=== PATIENT | female | born 2005 | race African-American/Black ===

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

== ENCOUNTER 2023-03-16 02:43 | Emergency (ER) | payer MEDICAID, SELFPAY ==
[2023-03-16 03:07] VITALS: BP 108/54; BP 148/80; PULSE 110; PULSE 67; RESP 18; TEMP 36.8; O2SAT 98; O2SAT 99; BMI 22.7
[2023-03-16 03:28] LABS: MANUAL DIFF FLAG NO
[2023-03-16 03:32] LABS: Basophils Percent Auto 0.4 % (0-2); Eosinophils Absolute Auto 0.1 X10*3/uL (0.0-0.4); Eosinophils Percent Auto 1.1 % (0-4); Hematocrit 36.9 % (37.0-47.0); Hemoglobin 12.5 g/dl (12.0-16.0); Imm Gran Abs Auto 0.03 X10*3/uL (0.00-0.03); Imm Gran Pct Auto 0.3 % (0.0-0.4); Lymphocytes Absolute Auto 2.6 X10*3/uL (1.2-4.9); Lymphocytes Percent Auto 27.8 % (20-40); Mean Corpuscular HGB Conc 33.9 g/dl (31.0-35.0); Mean Corpuscular Hemoglobin 28.2 pg (27.0-33.0); Mean Corpuscular Volume 83.1 fL (80.0-98.0); Mean Platelet Volume 9.5 fL (9.4-12.3); Monocytes Absolute Auto 0.5 X10*3/uL (0.1-1.2); Monocytes Percent Auto 5.8 % (2-11); Neutrophils Percent Auto 64.6 % (45-73); Platelet Count 226 X10*3/uL (160-400); Red Blood Count 4.44 X10*6/uL (4.20-5.50); White Blood Count 9.3 X10*3/uL (4.8-10.8)
[2023-03-16 03:58] LABS: Troponin-I High Sensitivity < 2.7 ng/L (<3.5-17.0)
[2023-03-16 04:04] LABS: COVID-19 Test Negative (Negative); IDNOW Serial# 08D9AD1C; IDNOW Serial# BCCEAD1C; Influenza A Negative (Negative); Influenza B2 Negative (Negative)
[2023-03-16 04:06] LABS: Alanine Aminotransferase 11 U/L (0-31); Albumin Level 3.7 g/dL (3.5-5.0); Alkaline Phosphatase 39 U/L (39-117); Anion Gap 11 (12-20); Aspartate Amino Transferase 15 U/L (5-31); Bilirubin Total 0.3 mg/dL (0.0-1.0); Blood Urea Nitrogen 7 mg/dL (9-16); Calcium 9.3 mg/dL (8.4-10.2); Carbon Dioxide 17 mmol/L (22-29); Chloride 110 mmol/L (96-108); Creatinine Clr Calc Pharmacy 110.1; Estimated Glomerular Filt Rate > 60; Glucose Random 99 mg/dL (60-115); Potassium 3.3 mmol/L (3.3-5.1); Sodium 135 mmol/L (135-145); Total Protein 6.9 g/dL (6.5-8.0)
[2023-03-16 04:57] VITALS: BP 103/58; PULSE 53; RESP 14; TEMP 36.6; O2SAT 99
--- NOTE | 2023-03-16 04:58 | PC.NURSE ---
Pt ca&ox4, no signs of distress. Pt placed on bedside monitor pt changed into hospital attire Pts bf at bedside Pt reporting 4/10 chest pain which is worse when breathing. Pt reports this is the first time she has this pain. Pt denies sob/n/v/dizziness. Pt reports she is 4 months . Pt advised urine needed. Plan of care ongoing.
--- NOTE | 2023-03-16 04:59 | ED_ITS ---
HPI - Chest Pain General Chief Complaint: Chest Pain Stated Complaint: Back and Chest Pain Time Seen by Provider: 03/16/23 04:59 Source: patient Mode of arrival: ambulatory Limitations: no limitations History of Present Illness HPI narrative: Patient is 4 months with history of anxiety used to take medication before not taking anymore under increased stress and anxiety unable to sleep complaining of sharp chest pain 1 hour prior to arrival no significant shortness of breath feels anxious no leg swelling or calf pain Related Data Previous Rx's Medication Instructions Recorded acetaminophen 500 mg tablet 500 mg PO Q6H PRN pain #14 tabs 05/16/21 (Tylenol Extra Strength) benzoyl peroxide 5 % topical gel 1 appl topical DAILY #60 grams 10/26/21 hydroxyzine HCl 10 mg tablet 10 mg PO Q6-8H PRN anxiety #14 tabs 10/26/21 sertraline 25 mg tablet See Rx Instructions PO DAILY #30 10/26/21 tabs clindamycin phosphate 1 % topical 1 appl topical BID #60 grams 04/24/22 gel hydroxyzine HCl 25 mg tablet 25 mg PO Q6-8H PRN anxiety #14 tabs 03/16/23 Allergies Allergy/AdvReac Type Severity Reaction Status Date / Time No Known Allergies Allergy Verified 03/16/23 03:12 Review of Systems 2 Review of Systems: Yes all other systems are reviewed and are negative PMFSH Past Medical History Medical History ADHD Surgical History S/P appendectomy Family History Family History Mother No problems noted. Father No problems noted. Social History Social History Household Members: Other Household Members Other:: lives with mother and brother. one dog. Smoked in Last 30 Days: No Use of substances other than those prescribed or required for medical reasons: No Advance Directives: No Advance Directives Information Provided: Yes Patient : Yes Physical Exam 2 Vital Signs: Vital Signs: Last Vital Signs Temp 97.9 F 03/16/23 04:57 Pulse 53 03/16/23 04:57 Resp 14 03/16/23 04:57 BP 103/58 L 03/16/23 04:57 Pulse Ox 99 03/16/23 04:57 O2 Del Method Room Air 03/16/23 04:57 BMI result Body Mass Index 22.7 Appearance: Alert. Oriented X3. Anxious Eyes: PERRLA, No Nystagmus ENT: Pharynx normal. Oral Mucosa moist Neck: Normal inspection. Neck supple. CVS: Normal heart rate and rhythm. Pulses normal. Respiratory: No respiratory distress. Equal air entry bilateral, no wheezing/rales/rhonchi Abdomen: Soft and nontender. Bowel sounds are present, no mass palpable, no CVA tenderness Skin: Skin warm and dry. Normal skin color. Normal skin turgor. Extremities: No lower extremity edema. No calf tenderness Neuro: Oriented X 3. Medications Administered Discontinued Medications Generic Name Dose Route Start Last Admin Trade Name Freq PRN Reason Stop Dose Admin Hydroxyzine HCl 25 mg 03/16/23 05:03 03/16/23 05:18 Hydroxyzine Hcl 25 Mg Tablet PO 03/16/23 05:04 25 mg ONCE ONE Administration Medical Decision Making Medical Decision Making [facility] Narrative: Patient with history of anxiety him with atypical chest pain EKG normal cardiac enzyme , heart score 0 discharge patient home on Atarax Lab Data [facility] Lab Attestation statement: I reviewed the patient's lab results. 03/16/23 03:21 03/16/23 03:21 Labs: Lab Results 03/16/23 Range/Units 03:21 WBC 9.3 (4.8-10.8) X10*3/uL RBC 4.44 (4.20-5.50) X10*6/uL Hgb 12.5 (12.0-16.0) g/dl Hct 36.9 L (37.0-47.0) % MCV 83.1 (80.0-98.0) fL MCH 28.2 (27.0-33.0) pg MCHC 33.9 (31.0-35.0) g/dl RDW 13.0 (11.0-16.0) % Plt Count 226 (160-400) X10*3/uL MPV 9.5 (9.4-12.3) fL Immature Gran % (Auto) 0.3 (0.0-0.4) % Neut % (Auto) 64.6 (45-73) % Lymph % (Auto) 27.8 (20-40) % [place] % (Auto) 5.8 (2-11) % Eos % (Auto) 1.1 (0-4) % Baso % (Auto) 0.4 (0-2) % Lymph # (Auto) 2.6 (1.2-4.9) X10*3/uL [place] # (Auto) 0.5 (0.1-1.2) X10*3/uL Eos # (Auto) 0.1 (0.0-0.4) X10*3/uL Baso # (Auto) 0.0 (0.0-0.2) X10*3/uL Abs Immat Gran (auto) 0.03 (0.00-0.03) X10*3/uL Absolute Neuts (auto) 6.0 (2.0-8.3) x10*3/uL Absolute Nucleated RBC 0.000 (0.0-0.012) X10*3/uL Nucleated RBC % (auto) 0.0 (0.0-0.2) /100WBC Sodium 135 (135-145) mmol/L Potassium 3.3 (3.3-5.1) mmol/L Chloride 110 H (96-108) mmol/L Carbon Dioxide 17 L (22-29) mmol/L Anion Gap 11 L (12-20) BUN 7 L (9-16) mg/dL Creatinine 0.68 (0.5-1.4) mg/dL Estim Creat Clear Calc 110.1 Estimated GFR > 60 Random Glucose 99 (60-115) mg/dL Calcium 9.3 (8.4-10.2) mg/dL Total Bilirubin 0.3 (0.0-1.0) mg/dL AST 15 (5-31) U/L ALT 11 (0-31) U/L Alkaline Phosphatase 39 (39-117) U/L Troponin I High Sens < 2.7 (<3.5-17.0) ng/L Total Protein 6.9 (6.5-8.0) g/dL Albumin 3.7 (3.5-5.0) g/dL Beta HCG, Quant 98795 mIU/mL COVID-19 (NEISHA) Negative (Negative) COVID-19 Clin Com See Note Influenza Type A (SCOTTIE) Negative (Negative) Influenza Type B (SCOTTIE) Negative (Negative) Influenza A & B Note See Note Independent Interpretation I performed an independent interpretation of an: EKG Interpretation: Sinus bradycardia heart rate 51 beats per minute no acute ST-T no acute ischemia Discharge Plan Discharge Clinical Impression: Anxiety, Chest pain Patient Disposition: Home, Self-Care Instructions: Chest Pain (DC), Generalized Anxiety Disorder (ED) Additional Instructions: Take medication for anxiety as needed your chest pain is not coming from the heart likely musculoskeletal Prescriptions: New hydroxyzine HCl 25 mg tablet 25 mg PO Q6-8H PRN (Reason: anxiety) Qty: 14 0RF No Action clindamycin phosphate 1 % gel 1 appl topical BID Qty: 60 1RF Rx Instructions: apply sparingly to clean, affected skin acetaminophen [Tylenol Extra Strength] 500 mg tablet 500 mg PO Q6H PRN (Reason: pain) Qty: 14 0RF sertraline 25 mg tablet See Rx Instructions PO DAILY Qty: 30 1RF Rx Instructions: take 12.5 mg (1/2 tab) PO daily x 2 weeks then increase to 25 mg daily (1 tab); hydroxyzine HCl 10 mg tablet 10 mg PO Q6-8H PRN (Reason: anxiety) Qty: 14 0RF benzoyl peroxide 5 % gel 1 appl topical DAILY Qty: 60 1RF Rx Instructions: apply sparingly to clean, affected skin daily at bedtime
[2023-03-16] MEDS: hydrOXYzine HCL 25 MG TABLET PO (05:18)
--- NOTE | 2023-03-16 05:37 | PC.NURSE ---
Pt medicated per mar. Pts bf remains at bedside Provider made aware pt is 4 months . Plan of care ongoing.
--- NOTE | 2023-03-16 05:57 | ECG_ITS ---
Test Reason : CP Blood Pressure : / mmHG Vent. Rate : 051 BPM Atrial Rate : 051 BPM P-R Int : 210 ms QRS Dur : 076 ms QT Int : 428 ms P-R-T Axes : 045 029 015 degrees QTc Int : 394 ms Sinus bradycardia with sinus arrhythmia with 1st degree A-V block Otherwise normal ECG When compared with ECG of 21-OCT-2020 18:21, Vent. rate has decreased BY 62 BPM NE interval has increased Referred By: Rajiv Alarcon Electronically Signed By:BRIAN PABLO
--- NOTE | 2023-03-16 06:05 | PC.NURSE ---
ekg results given to provider maurice
== END 2023-03-16 06:31 | disposition home or self-care (01) ==
PROVIDERS: Emergency Provider Internal Medicine
DX: F41.9 Anxiety disorder, unspecified (principal); R07.9 Chest pain, unspecified; Z20.822 Contact with and (suspected) exposure to COVID-19; F90.9 Attention-deficit hyperactivity disorder, unspecified type; Z79.899 Other long term (current) drug therapy
CPT/HCPCS: 36415; 80053; 84484; 84702; 85025; 87502; 87635; 93005; 99283; 99285

== ENCOUNTER 2023-05-07 23:04 | Emergency (ER) | payer OTHER, SELFPAY ==
--- NOTE | 2023-05-07 23:10 | ECG_ITS ---
Test Reason : CP Blood Pressure : / mmHG Vent. Rate : 065 BPM Atrial Rate : 065 BPM P-R Int : 188 ms QRS Dur : 076 ms QT Int : 374 ms P-R-T Axes : 042 031 029 degrees QTc Int : 388 ms Normal sinus rhythm with sinus arrhythmia Normal ECG When compared with ECG of 16-MAR-2023 06:00, No significant change was found Referred By: Generic ED Physician Electronically Signed By:ISABELA BRAVO MD
[2023-05-07 23:12] VITALS: BP 107/66; PULSE 72; RESP 18; TEMP 36.7; O2SAT 99; BMI 24.8
--- NOTE | 2023-05-07 23:19 | MHC.EDTECH ---
Patient came in by EMS,changed into hospital attire,satellite project site monitor placed,vitals and EKG done per order.
[2023-05-07 23:28] VITALS: PULSE 74
--- NOTE | 2023-05-07 23:38 | ED.CHESTPAIN ---
HPI - Chest Pain General Chief Complaint: Chest Pain Stated Complaint: SHARP CHEST PAIN X30 MINS, Time Seen by Provider: 05/07/23 23:37 Source: patient Mode of arrival: ambulatory Limitations: no limitations History of Present Illness HPI narrative: Patient is 6 months comes with left-sided sharp pain which is happened for last 3 months sharp in character lasting for hours increases on palpation and movements was seen here for same in the past with negative workup denies any shortness of breath feels stressed no palpitation no leg swelling or pain Related Data Previous Rx's Medication Instructions Recorded acetaminophen 500 mg tablet 500 mg PO Q6H PRN pain #14 tabs 05/16/21 (Tylenol Extra Strength) benzoyl peroxide 5 % topical gel 1 appl topical DAILY #60 grams 10/26/21 hydroxyzine HCl 10 mg tablet 10 mg PO Q6-8H PRN anxiety #14 tabs 10/26/21 sertraline 25 mg tablet See Rx Instructions PO DAILY #30 10/26/21 tabs clindamycin phosphate 1 % topical 1 appl topical BID #60 grams 04/24/22 gel hydroxyzine HCl 25 mg tablet 25 mg PO Q6-8H PRN anxiety #14 tabs 03/16/23 Allergies Allergy/AdvReac Type Severity Reaction Status Date / Time No Known Allergies Allergy Verified 03/16/23 03:12 Review of Systems Review of Systems: Yes all other systems are reviewed and are negative PMF Past Medical History Medical History ADHD Surgical History S/P appendectomy Family History Family History Mother No problems noted. Father No problems noted. Social History Social History Household Members: Other Household Members Other:: lives with mother and brother. one dog. Smoked in Last 30 Days: No Use of substances other than those prescribed or required for medical reasons: No Advance Directives: No Advance Directives Information Provided: No Patient : Yes Physical Exam Vital Signs: Vital Signs: Last Vital Signs Temp 98.1 F 05/07/23 23:12 Pulse 72 05/07/23 23:12 Resp 18 05/07/23 23:12 BP 107/66 05/07/23 23:12 Pulse Ox 99 05/07/23 23:12 O2 Del Method Room Air 05/07/23 23:12 BMI result Body Mass Index 24.8 Appearance: Alert. Oriented X3. No acute distress. Neck: Normal inspection. Neck supple. CVS: Normal heart rate and rhythm. Pulses normal. Respiratory: No respiratory distress. Equal air entry bilateral, no wheezing/rales/rhonchi chest wall tenderness left anterior 2nd intercostal space Abdomen: Soft and nontender. Skin: Skin warm and dry. Normal skin color. Normal skin turgor. Extremities: No lower extremity edema. No calf tenderness Neuro: Oriented X 3. Medications Administered Discontinued Medications Generic Name Dose Route Start Last Admin Trade Name Freq PRN Reason Stop Dose Admin Acetaminophen 650 mg 05/07/23 23:44 05/07/23 23:49 Acetaminophen 325 Mg Tablet PO 05/07/23 23:45 650 mg ONCE ONE Administration Medical Decision Making Medical Decision Making [facility] Narrative: Patient has atypical chest pain reproducible on palpation multiple ED visits for same discharge patient zones acute ischemic changes low risk for PE with no symptoms no shortness of breath no leg swelling or pain Differential Diagnosis Differential Diagnoses: The differential diagnosis associated with the presentation includes ACS/pericarditis/costochondritis Independent Interpretation I performed an independent interpretation of an: EKG Interpretation: Normal sinus rhythm heart rate 65 beats per minute normal interval normal axis no acute ST-T no acute ischemia Discharge Plan Discharge Clinical Impression: Chest wall pain Patient Disposition: Home, Self-Care Instructions: Chest Wall Pain (ED) Additional Instructions: Take Tylenol for pain Your chest pain is musculoskeletal not from the heart Prescriptions: No Action clindamycin phosphate 1 % gel 1 appl topical BID Qty: 60 1RF Rx Instructions: apply sparingly to clean, affected skin acetaminophen [Tylenol Extra Strength] 500 mg tablet 500 mg PO Q6H PRN (Reason: pain) Qty: 14 0RF hydroxyzine HCl 25 mg tablet 25 mg PO Q6-8H PRN (Reason: anxiety) Qty: 14 0RF sertraline 25 mg tablet See Rx Instructions PO DAILY Qty: 30 1RF Rx Instructions: take 12.5 mg (1/2 tab) PO daily x 2 weeks then increase to 25 mg daily (1 tab); hydroxyzine HCl 10 mg tablet 10 mg PO Q6-8H PRN (Reason: anxiety) Qty: 14 0RF benzoyl peroxide 5 % gel 1 appl topical DAILY Qty: 60 1RF Rx Instructions: apply sparingly to clean, affected skin daily at bedtime Interventions: ED Discharge Assessment Last Done: 05/07/23 23:55 Discharge Date/Time: 05/07/23 23:56
[2023-05-07] MEDS: Acetaminophen 325 MG TABLET 650 MG PO (23:49)
== END 2023-05-07 23:56 | disposition home or self-care (01) ==
PROVIDERS: Emergency Provider Internal Medicine
DX: R07.89 Other chest pain (principal)
CPT/HCPCS: 93005; 99284; 99285

== ENCOUNTER 2024-01-04 19:45 | Emergency (ER) | payer OTHER, SELFPAY ==
--- NOTE | ~2024-01-04 | CT_ITS ---
EXAMINATION: CT CERVICAL SPINE WITHOUT CONTRAST; UNENHANCED CT OF THE HEAD. CLINICAL INFORMATION: Injury COMPARISON: None TECHNIQUE: Routine unenhanced CT of the head with multiple coronal and sagittal reformatted images; routine unenhanced CT of the cervical spine with multiple coronal and sagittal reformatted images. This CT examination was performed using dose optimization techniques as appropriate, variously including the following: *Automated exposure control *Adjustment of mA and/or kV according to patient size (this includes techniques or standardized protocols for targeted exams where dose is matched to indication/reason for exam; i.e. extremities or head) *Use of iterative reconstruction technique DLP: 1051 mGy-cm FINDINGS: No intracranial hemorrhage, tumors or acute infarcts identified. The visualized orbits and globes are normal in appearance. The ventricles and sulci are normal in size and configuration. No significant opacification of the visualized paranasal sinuses, mastoid air cells and middle ear cavities. Focal subcutaneous emphysema and mild soft tissue inflammatory changes are present in the left temporal region. CT cervical spine: No fractures or acute appearing subluxations are identified. No facet arthropathic changes noted. No prevertebral fluid collections or soft tissue inflammatory changes. The visualized lung apices are clear. CT/CT cervical spine wo IV con IMPRESSION: CT HEAD: 1. No intracranial abnormalities. 2. Left temporal extra cranial soft tissue inflammatory changes in focal subcutaneous emphysema. CT CERVICAL SPINE: Normal.
--- NOTE | ~2024-01-04 | CT_ITS ---
EXAMINATION: CT CERVICAL SPINE WITHOUT CONTRAST; UNENHANCED CT OF THE HEAD. CLINICAL INFORMATION: Injury COMPARISON: None TECHNIQUE: Routine unenhanced CT of the head with multiple coronal and sagittal reformatted images; routine unenhanced CT of the cervical spine with multiple coronal and sagittal reformatted images. This CT examination was performed using dose optimization techniques as appropriate, variously including the following: *Automated exposure control *Adjustment of mA and/or kV according to patient size (this includes techniques or standardized protocols for targeted exams where dose is matched to indication/reason for exam; i.e. extremities or head) *Use of iterative reconstruction technique DLP: 1051 mGy-cm FINDINGS: No intracranial hemorrhage, tumors or acute infarcts identified. The visualized orbits and globes are normal in appearance. The ventricles and sulci are normal in size and configuration. No significant opacification of the visualized paranasal sinuses, mastoid air cells and middle ear cavities. Focal subcutaneous emphysema and mild soft tissue inflammatory changes are present in the left temporal region. CT cervical spine: No fractures or acute appearing subluxations are identified. No facet arthropathic changes noted. No prevertebral fluid collections or soft tissue inflammatory changes. The visualized lung apices are clear. CT/CT head/brain wo IV con IMPRESSION: CT HEAD: 1. No intracranial abnormalities. 2. Left temporal extra cranial soft tissue inflammatory changes in focal subcutaneous emphysema. CT CERVICAL SPINE: Normal.
[2024-01-04 19:49] VITALS: BP 128/80; PULSE 113; O2SAT 100
[2024-01-04 19:58] VITALS: BP 136/74; PULSE 99; RESP 18; TEMP 37.3; O2SAT 100; BMI 25.0
[2024-01-04 22:40] VITALS: BP 117/79; PULSE 81; RESP 16; TEMP 37; O2SAT 99
[2024-01-04] MEDS: Amoxicillin/Potassium Clav 875 MG TABLET PO (23:16)
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
[2024-01-04 23:44] VITALS: BP 117/79; PULSE 81; RESP 16; TEMP 37; O2SAT 99
== END 2024-01-04 23:45 | disposition home or self-care (01) ==
PROVIDERS: Emergency Provider Emergency Medicine
DX: S01.01XA Laceration without foreign body of scalp, initial encounter (principal); Y04.2XXA Assault by strike against or bumped into by another person, initial encounter; Y93.9 Activity, unspecified; Y92.007 Garden or yard of unspecified non-institutional (private) residence as the place of occurrence of the external cause; Y99.9 Unspecified external cause status
CPT/HCPCS: 70450; 72125; 99283; 99284

== ENCOUNTER 2024-11-25 19:50 | Emergency (ER) | payer OTHER, SELFPAY ==
[2024-11-25 20:13] VITALS: BP 131/84; PULSE 81; RESP 20; TEMP 37; O2SAT 99; BMI 26.3
--- OUTSIDE RECORDS SUMMARY | 2024-11-25 23:56 | XMS_ITS | Encounter Summary ---
Author Organization [facility] Address [address] [place] [address] Phone Care Team Providers Care Music Department Chair Name Role Phone Unavailable Primary Care Provider Unavailabl e Reason for Visit * Reason Onset Date Comments Med Refill Med Refill 03/16/2019 Encounter Details Date Type Department Care Team (Late st Contact Info) Description 02/14/2019 Refill [facility] [address] [place] [address] Mary Story, [facility] [address] [facility] [address] [place] [address] Keratosis pilaris rubra Social History Tobacco Use Types Packs/Day Years Used Date Smoking Tobacco: Never Smokeless Tobacco: Never Comments No Sex and Gender Information Value Date Recorded Sex Assigned at Female 05/04/2019 9:30 AM EST Legal Sex Female 4:57 PM EDT Gender Identity Female 05/04/2019 9:30 AM EST Sexual Orientation Straight 05/04/2019 9: 30 AM EST documented as of this encounter Miscellaneous Notes * Telephone Encounter - Princess Cornelius LPN - 02/17/2019 8:16 AM EDT Left message to call and reschedule PE appt/JOD * Telephone Encounter - Gisselle Lawson MD - 02/17/2019 12:37 AM EDT No show today for appt. Please make sure pt reschedules. * Telephone Encounter - Princess Cornelius LPN - 02/16/2019 8:19 AM EDT Refill request for Ammonium Lactate. Has PE TODAY/JOAgustin documented in this encounter Plan of Treatment Not on file documented as of this encounter Visit Diagnoses Diagnosis Keratosis pilaris rubra documented in this encounter
== END 2024-11-25 23:57 | disposition left against medical advice (07) ==
PROVIDERS: Emergency Provider Emergency Medicine
DX: H57.12 Ocular pain, left eye (principal); Z53.21 Procedure and treatment not carried out due to patient leaving prior to being seen by health care provider
CPT/HCPCS: 99281